=== PATIENT | male | born 1955 | race Caucasian/White ===

== ENCOUNTER 2017-10-10 11:00 | Day surgery (SDC) | payer OTHER ==
[~2017-10-10] VITALS: Ht 175.3 cm; Wt 68.0 kg
[~2017-10-10 11:00] MED LIST: CLARITIN,ALAVAR10 MG PO; MULTIPLE VITAM1 EACH PO
[2017-10-10] MEDS ORDERED: VOLTAREN 1% GE100 GM TP (11:41)
[2017-10-10 16:33] VITALS: BP 120/72
[2017-10-10 17:40] VITALS: BP 125/64
== END 2017-10-10 18:00 | disposition home or self-care (01) ==
LOC: SDC 11:00
DX: M77.11 Lateral epicondylitis, right elbow (principal); S53.491A Other sprain of right elbow, initial encounter; X58.XXXA Exposure to other specified factors, initial encounter; Z88.0 Allergy status to penicillin
CPT/HCPCS: C1713; J1100; J1170; J2405; J3010; S0020